=== PATIENT | male | born 1960 | race Caucasian/White ===

== ENCOUNTER 2020-12-17 23:26 | Observation (INO) ==
[2020-12-18] MEDS ORDERED: Hyoscyamine SL 0.125 MG TAB.SUBL SL PRN ×2 (00:19→17:53)
[2020-12-18] MEDS ORDERED: *HR* HYDROmorphone 2 MG/ML SYRINGE IVP ONE (00:20)
[2020-12-18] MEDS ORDERED: Ketorolac 15 MG/ML VIAL IVP ONE (00:20)
[2020-12-18] MEDS ORDERED: Ondansetron 4 MG/2 ML VIAL IVP ONE (00:20)
[2020-12-18 00:38] LABS: Hematocrit 37.6 % (37.5-50.1); Hemoglobin 12.5 g/dL (12.9-16.9); Mean Corpuscular HGB Conc 33.2 g/dL (31.6-35.5); Mean Corpuscular Hemoglobin 32.8 pg (28.0-33.3); Mean Corpuscular Volume 98.7 fL (83.0-100.0); Mean Platelet Volume 9.3 fL (9.4-12.4); Platelet Count 292 K/mcL (140-400); Red Blood Count 3.81 M/mcL (4.19-5.50); Red Cell Distribution Width 13.3 % (11.5-14.5); White Blood Count 10.3 K/mcL (4.3-11.1)
[2020-12-18 00:52] LABS: Calcium 9.1 mg/dL (8.6-10.3); Potassium 4.1 mEq/L (3.5-5.1)
[2020-12-18 01:53] LABS: Bilirubin,Urine Negative (Negative); Blood,Urine Moderate (Negative); Clarity,Urine Clear (Clear); Color,Urine Light-Yellow (Yellow); Glucose,Urine (UA) Normal (Normal); Hyaline Casts,Urine Few per lpf (None Seen); Ketones,Urine Negative (Negative); Leukocyte Esterase,Urine Negative (Negative); Mucus,Urine Few per lpf (None-Few); Nitrite,Urine Negative (Negative); PH,Urine 5.5 pH Units (5.0-8.0); Protein,Urine Negative (Neg-Trace); RBC,Urine 15-30 per hpf (0-3); Specific Gravity,Urine 1.023 (1.010-1.025); Urobilinogen,Urine Normal (Normal)
[2020-12-18] MEDS ORDERED: 0.9 % Sodium Chloride 1,000 ML IVC ONE (02:09)
[2020-12-18] MEDS ORDERED: Ondansetron 4 MG/2 ML VIAL IVP PRN ×2 (02:49→17:53)
[2020-12-18] MEDS ORDERED: Naloxone 0.4 MG/ML INJ IVP PRN ×2 (02:49→17:53)
[2020-12-18] MEDS ORDERED: Ketorolac 30 MG/ML VIAL IVP PRN (02:49)
[2020-12-18 03:31] LABS: Influenza A PCR Negative (Negative); Influenza B PCR Negative (Negative); Resp. Syncytial Virus PCR Negative (Negative)
[2020-12-18 03:34] LABS: SARS-CoV-2 by PCR (In House) Negative (Negative)
[2020-12-18] MEDS ORDERED: Melatonin 3 MG TABLET PO PRN ×2 (08:18→17:53)
[2020-12-18] MEDS ORDERED: D5% in Water 1,000 ML IVC PRN ×2 (08:21→17:53)
[2020-12-18] MEDS ORDERED: Dextrose Gel 15 GM/37.5 ML TUBE PO PRN ×4 (08:21→17:53)
[2020-12-18] MEDS ORDERED: *HR* Dextrose 50 % in Water (Vial) 50 ML VIAL IVP PRN ×2 (08:21→17:53)
[2020-12-18] MEDS ORDERED: cefTRIAXone 1,000 MG in Water for inj. (sterile) 10 ML IVP SCH (09:00)
[2020-12-18] MEDS ORDERED: Multivit/Ca/Min/Fe/FA 1 TAB TABLET PO SCH (09:00)
[2020-12-18] MEDS ORDERED: Morphine Sulfate 2 MG/ML SYRINGE IVP ONE (11:11)
[2020-12-18] MEDS ORDERED: *HR* HYDROmorphone (PF) 1 MG/ML SYRINGE IVP ONE (12:33)
[2020-12-18] MEDS ORDERED: 0.9 % Sodium Chloride 1,000 ML IVC SCH (12:45)
[2020-12-18] MEDS ORDERED: *HR* Propofol 200 MG/20 ML VIAL IVP ONE (14:21)
[2020-12-18] MEDS ORDERED: Lidocaine -MPF 2% 2 ML VIAL ONE (14:21)
[2020-12-18] MEDS ORDERED: *HR* FentaNYL (PF) 100 MCG/2 ML VIAL ONE (14:21)
[2020-12-18] MEDS ORDERED: Dexamethasone 4 MG/ML VIAL ONE (14:48)
[2020-12-18] MEDS ORDERED: Ondansetron 4 MG/2 ML VIAL ONE (14:48)
[2020-12-18] MEDS ORDERED: *HR* Midazolam HCl 2 MG/2 ML VIAL ONE (14:49)
[2020-12-18] MEDS ORDERED: *HR* Succinylcholine 200 MG/10 ML VIAL IVP ONE (14:50)
[2020-12-18] MEDS ORDERED: Isovue-300 50ML VIAL ONE (15:04)
[2020-12-18] MEDS ORDERED: Fluticasone Propionate Nasal 50 MCG/SPRAY BOTTLE NS SCH (16:15)
[2020-12-18] MEDS: 0.9 % Sodium Chloride 1,000 ML IVC SCH (18:35)
[2020-12-19 04:01] LABS: Basophils % 0.1 %; Hematocrit 39.1 % (37.5-50.1); Hemoglobin 12.9 g/dL (12.9-16.9); Immature Granulocytes % 0.4 % (0-4); Lymphocytes # 0.7 K/mcL (0.6-4.6); Lymphocytes % 9.3 %; Mean Corpuscular Hemoglobin 32.1 pg (28.0-33.3); Mean Corpuscular Volume 97.3 fL (83.0-100.0); Mean Platelet Volume 9.7 fL (9.4-12.4); Monocytes # 0.4 K/mcL (0.0-1.3); Monocytes % 4.9 %; Neutrophils # 6.2 K/mcL (1.6-8.9); Platelet Count 317 K/mcL (140-400); Red Blood Count 4.02 M/mcL (4.19-5.50); Red Cell Distribution Width 12.5 % (11.5-14.5); Segmented Neutrophils % 85.3 %; White Blood Count 7.3 K/mcL (4.3-11.1)
[2020-12-19 04:20] LABS: Magnesium 2.3 mg/dL (1.6-2.6); Phosphorous 2.7 mg/dL (2.7-4.5)
[2020-12-19 04:21] LABS: BUN/Creatinine Ratio 14 (6-26); Blood Urea Nitrogen 14 mg/dL (8-23); Calcium 9.2 mg/dL (8.6-10.3); Carbon Dioxide 22 mEq/L (23-29); Chloride 104 mEq/L (98-107); Glucose 164 mg/dL (70-105); Osmolality,Calculated 286 (280-300); Potassium 4.3 mEq/L (3.5-5.1); Sodium 136 mEq/L (136-145); eGFR For African Americans > 60 (> 60); eGFR For Non-African Americans > 60 (> 60)
[2020-12-19 06:50] VITALS: BP 91/45
[2020-12-19] MEDS: 0.9 % Sodium Chloride 1,000 ML IVC SCH (07:55)
[2020-12-19] MEDS ORDERED: cefTRIAXone 1,000 MG in Water for inj. (sterile) 10 ML IVP SCH (09:00)
[2020-12-19] MEDS ORDERED: Fluticasone Propionate Nasal 50 MCG/SPRAY BOTTLE NS SCH (09:00)
[2020-12-19] MEDS ORDERED: Multivit/Ca/Min/Fe/FA 1 TAB TABLET PO SCH (09:00)
== END 2020-12-19 10:40 | disposition home or self-care (01) ==
LOC: CDU 23:26 → EMEROOARM 23:26 → SUATTDRO 12-18 03:44 → CDU 12-18 04:20 → 3BNU 12-18 17:27
PROVIDERS: ADMIT Family Medicine; ATTEND Internal Medicine